=== PATIENT | female | born 1935 | race Caucasian/White ===

== ENCOUNTER 2016-08-17 09:04 | Observation (INO) | payer OTHER, MEDICARE ==
[~2016-08-17] VITALS: Ht 149.9 cm; Wt 71.6 kg
[2016-08-17] MEDS ORDERED: PAROXETINE CR25 MG PO (09:40)
[2016-08-17] MEDS ORDERED: LEVO-T50 MCG PO (09:41)
[2016-08-17] MEDS ORDERED: ATIVAN0.5 MG PO (09:42)
[2016-08-17 10:02] LABS: EOSINOPHIL (%) 2.2 % (0-5); EOSINOPHIL COUNT 0.2 K/uL (0-0.3); HEMATOCRIT 43.5 % (36.0-46.0); IMMATURE GRANULOCYTE (%) 0.1 % (0.0-0.7); INSTRUMENT ABS NEUTROPHIL CT 4.4 K/uL; LYMPHOCYTE COUNT 1.7 K/uL (1.0-2.8); MCH 28.5 PG (29.0-34.0); MCHC 31.7 G/DL (30.0-36.0); MCV 89.9 FL (83-99); MEAN PLAT.VOLUME 10.4 uM^3 (9.5-12.4); MONOCYTE (%) 5.8 % (3-12); MONOCYTE COUNT 0.4 K/uL (0-0.8); NEUTROPHIL (%) 65.5 % (45-76); NEUTROPHIL COUNT 4.4 K/uL (1.8-6.4); PLATELET COUNT 262 K/uL (156-360); RBC DIS.WIDTH-CV 13.7 % (11.8-14.6); RBC DIS.WIDTH-SD 45.7 % (39-53); RED BLOOD COUNT 4.84 M/uL (3.80-5.20); WHITE BLOOD COUNT 6.8 K/uL (4.1-10.2)
[2016-08-17 10:14] LABS: PTT 27.1 (25-32)
[2016-08-17 10:24] LABS: TROP-I INTERPRETATION NEGATIVE; TROPONIN-I < 0.01 ng/mL (0.0-0.30)
[2016-08-17 10:38] LABS: ANION GAP 14 MEQ/L (2-14); CHLORIDE 104 MEQ/L (99-109); POTASSIUM 4.3 MEQ/L (3.7-5.4); SAMPLE HEMOLYSIS CHECK 0; SAMPLE ICTERIC CHECK 0; SAMPLE LIPEMIA CHECK 0; SODIUM 142 MEQ/L (136-147)
[2016-08-17 10:43] LABS: GFR ESTIMATE (CALCULATED) > 59 mL/min/; GLUCOSE 112 mg/dL (70-99); UREA NITROGEN (BUN) 16 mg/dL (9-23)
[2016-08-17] MEDS ORDERED: MOVE FREE JOIN1 EACH PO (12:01)
[2016-08-17] MEDS ORDERED: VITAMIN D2000 UNIT PO (12:02)
[2016-08-17 13:54] VITALS: BP 185/96
[2016-08-17 23:46] VITALS: BP 137/65
[2016-08-18 04:48] VITALS: BP 146/63
[2016-08-18 06:51] LABS: HDL CHOLESTEROL 59 MG/DL (Desirable>=50); LDL CHOLESTEROL 169 mg/dL (Desirable<100); NON-HDL CHOLESTEROL 205 mg/dL (Desirable<160); TOTAL CHOLESTEROL 264 mg/dL (Desirable<200); TRIGLYCERIDES 181 MG/DL (Normal: <150)
[2016-08-18 07:24] VITALS: BP 151/65
[2016-08-18 07:55] LABS: Estimated Average Glucose 128 mg/dL (70-123); HEMOGLOBIN A1c (GLYCOHEMOGLOB) 6.1 % HGB (Below 5.7)
[2016-08-18 12:28] VITALS: BP 147/63
[2016-08-18] MEDS ORDERED: ASPIR-LOW81 MG PO (14:09)
[2016-08-18] MEDS ORDERED: PRAVASTATIN SOD40 MG PO (14:09)
[2016-08-18] MEDS ORDERED: AMLODIPINE BESYL5 MG PO (14:09)
== END 2016-08-18 15:44 | disposition home or self-care (01) ==
LOC: EME 09:04 → EDOF 12:55 → 5WEST 12:55
PROVIDERS: Emergency Medicine; Hospitalist
DX: I10 Essential (primary) hypertension (principal); I65.23 Occlusion and stenosis of bilateral carotid arteries; R42 Dizziness and giddiness; I35.0 Nonrheumatic aortic (valve) stenosis; R47.81 Slurred speech; E03.9 Hypothyroidism, unspecified; F32.9 Major depressive disorder, single episode, unspecified; Z85.3 Personal history of malignant neoplasm of breast
CPT/HCPCS: 70450; 70551; 71010; 80048; 80061; 83036; 84484; 85025; 85610; 85730; 93005; 93306; 93880; 99281; 99285; G0378; J2060